=== PATIENT | female | born 1950 | race Caucasian/White ===

== ENCOUNTER 2019-04-11 20:22 | Inpatient (IN) | payer BC, OTHER ==
[2019-04-11 20:57] LABS: Absolute Lymphocytes (CBC) 0.6 K/uL (0.7-4.9); Basophils % 0.4 % (0-1.3); Hematocrit 46.2 % (36.0-45.0); Lymphocytes % 6.6 % (15.3-44.8); MPV 10.7 fL (7.6-11.3); RBC Red Blood Cell Count 5.28 M/uL (3.86-4.86)
[2019-04-11 20:59] LABS: Protime INR 0.95
[2019-04-11] MEDS ORDERED: INSULIN -REGULAR HUMAN 50 UNIT/0.5 ML ML ONE ×2 (21:06→22:31)
[2019-04-11 21:22] LABS: ALT/SGPT 234 U/L (12-78); AST/SGOT 105 U/L (15-37); Albumin 3.9 g/dL (3.4-5.0); Alkaline Phosphatase 883 U/L (45-117); BUN Blood Urea Nitrogen 57 mg/dL (7-18); Bicarbonate 15 mmol/L (21-32); Bilirubin Direct 1.8 mg/dL (0-0.2); Bilirubin Total 2.5 mg/dL (0.2-1.0); Magnesium 2.4 mg/dL (1.8-2.4); NT PRO-BNP 303 pg/mL (<125); Potassium 4.5 mmol/L (3.5-5.1); Sodium Level 130 mmol/L (136-145); Troponin (Emerg Dept Use Only) 0.26 ng/mL (0.0-0.045)
[2019-04-11 21:23] LABS: Glucose Level 688 mg/dL (74-106)
[2019-04-11 21:45] LABS: Blood Morphology Comment NOT SEEN (NOT SEEN); Platelet Estimate ADEQ; Urine White Blood Cell Casts OK
[2019-04-11] MEDS ORDERED: NA CHLORIDE 0.9% 1,000 ML ONE (22:26)
--- NOTE | 2019-04-11 23:26 | ER ---
Nurse's Notes [facility] Name: Pavithra Bowen Age: 68 yrs Sex: Female : 1950 Arrival Date: 04/11/2019 Time: 20:23 Bed 25 Private MD: Diagnosis: Chest pain, unspecified;Hyperglycemia, unspecified Presentation: 04/11 20:23 Presenting complaint: EMS states: patient had dull chest pain in the entire chest area mg2 today, high blood sugar and hypertension, BP- 172/112 and BGL-High. she is on treatment for shingles for 3 weeks now. Transition of care: patient was not received from another setting of care. Onset of symptoms was April 11, 2019. Risk Assessment: Do you want to hurt yourself or someone else? Patient reports no desire to harm self or others. Initial Sepsis Screen: Does the patient meet any 2 criteria? No. Patient's initial sepsis screen is negative. Does the patient have a suspected source of infection? No. Patient's initial sepsis screen is negative. Care prior to arrival: None. 20:23 Method Of Arrival: EMS: [facility] mg2 20:23 Acuity: MAURY 2 mg2 Historical: - Allergies: 20:26 Codeine; mg2 - Home Meds: 20:29 Plavix Oral [Active]; atorvastatin oral oral [Active]; valsartan oral oral [Active]; mg2 insulin [Active]; allopurinol Oral [Active]; - PMHx: 20:26 Diabetes - IDDM; Hypertension; shingles; Hyperlipidemia; mg2 - Immunization history:: Flu vaccine status is unknown. - Ebola Screening: : No symptoms or risks identified at this time. - Social history:: Smoking status: unknown. Screenin:55 Abuse screen: Denies threats or abuse. Denies injuries from another. Nutritional mg2 screening: No deficits noted. Tuberculosis screening: No symptoms or risk factors identified. Fall Risk IV access (20 points). Assessment: 20:54 General: Appears in no apparent distress. comfortable, Behavior is calm, cooperative. mg2 Pain: Complains of pain in chest Pain does not radiate. Pain currently is 2 out of 10 on a pain scale. Quality of pain is described as dull, Pain began gradually, Is intermittent. Neuro: Level of Consciousness is awake, alert, obeys commands, Oriented to person, place, time, situation. Cardiovascular: Reports chest pain, Capillary refill < 3 seconds Patient's skin is warm and dry. Respiratory: Airway is patent Respiratory effort is even, unlabored, Respiratory pattern is regular, symmetrical. GI: No signs and/or symptoms were reported involving the gastrointestinal system. : No signs and/or symptoms were reported regarding the genitourinary system. EENT: No signs and/or symptoms were reported regarding the EENT system. Derm: Skin is intact, is healthy with good turgor, Skin is pink, warm \T\ dry. normal. Musculoskeletal: Circulation, motion, and sensation intact. Capillary refill < 3 seconds. 23:33 Reassessment: patient denies chest pain now. informed about the need for mg2 hospitalization. 04/12 00:24 Reassessment: Patient appears in no apparent distress at this time. Patient and/or mg2 family updated on plan of care and expected duration. Pain level reassessed. Patient is alert, oriented x 3, equal unlabored respirations, skin warm/dry/pink. Vital Signs: 04/11 20:25 Temp 98.2; Weight 79.38 kg; Height 5 ft. 11 in. (180.34 cm); mg2 20:56 BP 154 / 87; Pulse 100; Resp 18; Pulse Ox 100% on R/A; mg2 21:31 BP 147 / 92; Pulse 95; Resp 18; Pulse Ox 99% on R/A; mg2 23:05 BP 164 / 85; Pulse 81; Resp 18; Temp 98; Pulse Ox 100% on R/A; Pain 0/10; mg2 04/12 00:23 BP 165 / 84; Pulse 68; Resp 18; Temp 98.5; Pulse Ox 100% on R/A; Pain 0/10; mg2 04/11 20:25 Body Mass Index 24.41 (79.38 kg, 180.34 cm) mg2 ED Course: 04/11 20:23 Patient arrived in ED. ds1 20:23 Aly Aguila, RN is Primary Nurse. mg2 20:25 Triage completed. mg2 20:26 Arm band placed on. mg2 20:30 Lalo Guido MD is Attending Physician. tw4 20:40 EKG done, by ED staff, reviewed by Lalo Guido MD. jp3 20:45 Placed in gown. Bed in low position. Call light in reach. Side rails up X 1. Warm jp3 blanket given. Verbal reassurance given. 20:45 surveillance system monitor on. Pulse ox on. NIBP on. jp3 20:54 Patient maintains SpO2 saturation greater than 95% on room air. jp3 20:56 No provider procedures requiring assistance completed. Maintain EMS IV. Dressing mg2 intact. Good blood return noted. Site clean \T\ dry. Gauge \T\ site: 20 at . 20:59 XRAY Chest (1 view) In Process Unspecified. EDMS 22:00 Repeat lab(s) drawn. by me, sent to lab. jp3 22:02 Glucose Sent. jp3 23:25 Hector Grajeda MD is Hospitalizing Provider. tw4 23:30 Repeat lab(s) drawn. by me, sent to lab. jp3 23:35 Glucose Sent. jp3 23:35 Glucose, Ancillary Testing Sent. jp3 04/12 01:14 Patient admitted, IV remains in place. mg2 Administered Medications: 04/11 20:45 Drug: Insulin Regular Human 10 units {Co-Signature: ophelia (Agustina Araiza RN).} Route: mg2 IVP; Site: right hand; 21:47 Follow up: Response: No adverse reaction mg2 22:14 Drug: Insulin Regular Human 10 units {Co-Signature: delano (Davi Vazquez RN).} Route: IVP; mg2 Site: right hand; 04/12 00:22 Follow up: Response: No adverse reaction; Blood sugar is lowered mg2 04/11 22:15 Drug: Insulin Regular Human 5 units {Co-Signature: delano (Davi Vazquez RN).} Route: Sub-Q; mg2 Site: right upper arm; 04/12 00:22 Follow up: Response: No adverse reaction; Blood sugar is lowered mg2 04/11 22:15 Drug: NS 0.9% 1000 ml Route: IV; Rate: 1 bolus; Site: right hand; mg2 04/12 00:22 Follow up: Response: No adverse reaction; IV Status: Completed infusion; IV Intake: mg2 1000ml Point of Care Testing: Blood Glucose: 04/11 23:15 Blood Glucose: 471 mg/dL; mg2 Ranges: Intake: 04/12 00:22 IV: 1000ml; Total: 1000ml. mg2 Outcome: 04/11 23:25 Decision to Hospitalize by Provider. tw4 04/12 01:26 Admitted to Med/surg accompanied by nurse, via wheelchair, room 208, Report called to leigh garcia RN Condition: good Instructed on the need for admit, Demonstrated understanding of instructions. 01:27 Patient left the ED. [facility] Signatures: Dispatcher [employer] EDCA Cricket [place] ds1 Lalo Guido MD MD tw4 Aly Aguila RN RN [facility] Herberth Mae 3 Agustina Araiza RN Davi Vazquez RN la1 Corrections: (The following items were deleted from the chart) 04/11 21:01 20:56 BP 154 / 87; Pulse 100bpm; Resp 18bpm; mg2 mg2
--- NOTE | 2019-04-11 23:27 | EDPHYS ---
Physician Documentation [facility] Name: Pavithra Bowen Age: 68 yrs Sex: Female : 1950 Arrival Date: 04/11/2019 Time: 20:23 Bed 25 Private MD: ED Physician Lalo Guido HPI: 04/12 05:44 This 68 yrs old Female presents to ER via EMS with complaints of Chest Pain. tw4 05:44 The patient or guardian reports chest pain that is located primarily in the anterior tw4 chest wall. Onset: today. The pain does not radiate. Associated signs and symptoms: The patient has no apparent associated signs or symptoms. The chest pain is described as dull. Duration: The patient or guardian reports a single episode. Modifying factors: The symptoms are alleviated by nothing. the symptoms are aggravated by nothing. Severity of pain: At its worst the pain was moderate in the emergency department the pain is unchanged. The patient has not experienced similar symptoms in the past. Historical: - Allergies: 04/11 20:26 Codeine; mg2 - Home Meds: 20:29 Plavix Oral [Active]; atorvastatin oral oral [Active]; valsartan oral oral [Active]; mg2 insulin [Active]; allopurinol Oral [Active]; - PMHx: 20:26 Diabetes - IDDM; Hypertension; shingles; Hyperlipidemia; mg2 - Immunization history:: Flu vaccine status is unknown. - Ebola Screening: : No symptoms or risks identified at this time. - Social history:: Smoking status: unknown. ROS: 04/12 05:44 Constitutional: Negative for fever, chills, and weight loss, Eyes: Negative for injury, tw4 pain, redness, and discharge, Respiratory: Negative for shortness of breath, cough, wheezing, and pleuritic chest pain, Abdomen/GI: Negative for abdominal pain, nausea, vomiting, diarrhea, and constipation, Back: Negative for injury and pain, MS/Extremity: Negative for injury and deformity, Skin: Negative for injury, rash, and discoloration, Neuro: Negative for headache, weakness, numbness, tingling, and seizure. Cardiovascular: Positive for chest pain, Negative for edema, orthopnea, palpitations. Exam: 05:44 Constitutional: This is a well developed, well nourished patient who is awake, alert, tw4 and in no acute distress. Head/Face: Normocephalic, atraumatic. Chest/axilla: Normal chest wall appearance and motion. Nontender with no deformity. No lesions are appreciated. Cardiovascular: Regular rate and rhythm with a normal S1 and S2. No gallops, murmurs, or rubs. Normal PMI, no JVD. No pulse deficits. Respiratory: Lungs have equal breath sounds bilaterally, clear to auscultation and percussion. No rales, rhonchi or wheezes noted. No increased work of breathing, no retractions or nasal flaring. Abdomen/GI: Soft, non-tender, with normal bowel sounds. No distension or tympany. No guarding or rebound. No evidence of tenderness throughout. Back: No spinal tenderness. No costovertebral tenderness. Full range of motion. MS/ Extremity: Pulses equal, no cyanosis. Neurovascular intact. Full, normal range of motion. Neuro: Awake and alert, GCS 15, oriented to person, place, time, and situation. Cranial nerves II-XII grossly intact. Motor strength 5/5 in all extremities. Sensory grossly intact. Cerebellar exam normal. Normal gait. Vital Signs: 04/11 20:25 Temp 98.2; Weight 79.38 kg; Height 5 ft. 11 in. (180.34 cm); mg2 20:56 BP 154 / 87; Pulse 100; Resp 18; Pulse Ox 100% on R/A; mg2 21:31 BP 147 / 92; Pulse 95; Resp 18; Pulse Ox 99% on R/A; mg2 23:05 BP 164 / 85; Pulse 81; Resp 18; Temp 98; Pulse Ox 100% on R/A; Pain 0/10; mg2 04/12 00:23 BP 165 / 84; Pulse 68; Resp 18; Temp 98.5; Pulse Ox 100% on R/A; Pain 0/10; mg2 04/11 20:25 Body Mass Index 24.41 (79.38 kg, 180.34 cm) mg2 MDM: 04/11 20:30 Patient medically screened. tw4 04/12 05:44 Differential diagnosis: abnormal EKG, acute myocardial infarction. HEART Score: tw4 History: Moderately Suspicious (1), ECG: Non specific repolarization disturbance / LBTB / PM (1), Age: > or = 65 years (2), Risk Factors: 1 or 2 risk factors (1), Troponin: > 1 and < 3 x normal limit (1), Total Score = 3. Data reviewed: vital signs, nurses notes. Data interpreted: Pulse oximetry: Interpretation:. Test interpretation: by ED physician or midlevel provider: ECG, plain radiologic studies. Counseling: I had a detailed discussion with the patient and/or guardian regarding: the historical points, exam findings, and any diagnostic results supporting the discharge/admit diagnosis, lab results, radiology results. Physician consultation: Hector Grajeda MD and will see patient in inpatient room. 04/11 20:41 Order name: Basic Metabolic Panel; Complete Time: 23:15 tw 04/11 23:20 Interpretation: Normal except: GFR 24; CRE 2.08; BUN 57; GLUC 688; CO2 15; NA 130. tw04/11 20:41 Order name: CBC with Diff; Complete Time: 23:15 [facility] 04/11 20:41 Order name: LFT's; Complete Time: 23:15 [facility] 04/11 20:41 Order name: Magnesium; Complete Time: 23:15 tw4 04/11 23:17 Interpretation: Within normal limits: MG 2.4. tw04/11 20:41 Order name: NT PRO-BNP; Complete Time: 23:15 [facility] 04/11 20:41 Order name: PT-INR; Complete Time: 23:15 tw4 04/11 23:17 Interpretation: Within normal limits: PT 11.2. 04/11 20:41 Order name: Troponin (emerg Dept Use Only); Complete Time: 23:15 [facility] 04/11 23:16 Interpretation: Abnormal: TROPED 0.26. tw04/11 20:41 Order name: Ketone, Serum; Complete Time: 22:03 [facility] 04/11 23:17 Interpretation: Within normal limits: ACET NEG. 04/11 20:42 Order name: Glucose, Ancillary Testing; Complete Time: 23:15 EDMS 04/11 23:16 Interpretation: Abnormal: GLUC,ANCIL > 450. 04/11 20:49 Order name: Urine Dipstick--Ancillary (enter results) [facility] 04/11 21:00 Order name: CBC Smear Scan; Complete Time: 23:15 EDMS 04/11 21:46 Order name: Glucose; Complete Time: 23:15 mg2 04/11 23:17 Interpretation: Abnormal: GLUC 642. tw4 04/11 22:06 Order name: Glucose, Ancillary Testing; Complete Time: 23:15 EDMS 04/11 22:08 Order name: Glucose, Ancillary Testing EDMS 04/11 20:41 Order name: XRAY Chest (1 view) tw4 04/11 20:41 Order name: EKG; Complete Time: 20:44 tw4 04/11 20:41 Order name: Cardiac monitoring; Complete Time: 20:57 tw4 04/11 20:41 Order name: EKG - Nurse/Tech; Complete Time: 20:53 tw4 04/11 20:41 Order name: IV Saline Lock; Complete Time: 20:53 tw4 04/11 20:41 Order name: Labs collected and sent; Complete Time: 20:54 tw4 04/11 20:41 Order name: O2 Per Protocol; Complete Time: 20:54 tw4 04/11 20:41 Order name: O2 Sat Monitoring; Complete Time: 20:54 tw4 04/11 23:17 Order name: Glucose tw4 EC:53 Rate is 100 beats/min. Rhythm is regular. QRS [place] is Normal. NC interval is normal. tw4 QRS interval is normal. QT interval is normal. No Q waves. T waves are Normal. No ST changes noted. Clinical impression: NSR w/ Non-specific ST/T Changes and Abnormal EKG without significant change. Interpreted by me. Reviewed by me. Administered Medications: 04/11 20:45 Drug: Insulin Regular Human 10 units {Co-Signature: (Agustina Araiza RN).} Route: mg2 IVP; Site: right hand; 21:47 Follow up: Response: No adverse reaction mg2 22:14 Drug: Insulin Regular Human 10 units {Co-Signature: delano (Davi Vazquez RN).} Route: IVP; mg2 Site: right hand; 04/12 00:22 Follow up: Response: No adverse reaction; Blood sugar is lowered mg2 04/11 22:15 Drug: Insulin Regular Human 5 units {Co-Signature: delano (Davi Vazquez RN).} Route: Sub-Q; mg2 Site: right upper arm; 04/12 00:22 Follow up: Response: No adverse reaction; Blood sugar is lowered mg2 04/11 22:15 Drug: NS 0.9% 1000 ml Route: IV; Rate: 1 bolus; Site: right hand; mg2 04/12 00:22 Follow up: Response: No adverse reaction; IV Status: Completed infusion; IV Intake: mg2 1000ml Point of Care Testing: Blood Glucose: 04/11 23:15 Blood Glucose: 471 mg/dL; mg2 Ranges: Critical Glucose Levels:Adult <50 mg/dl or >400 mg/dl <40 mg/dl or >180 mg/dl Disposition: 04/11/19 23:25 Hospitalization ordered by Hector Grajeda for Inpatient Admission. Preliminary diagnosis are Chest pain, unspecified, Hyperglycemia, unspecified. - Bed requested for Telemetry/MedSurg (Inpatient). - Status is Inpatient Admission. mg2 - Condition is Stable. - Problem is new. - Symptoms have improved. UTI on Admission? No Signatures: Dispatcher [employer] EDMS Davi Vazquez RN RN la1 Lalo Guido MD MD tw4 Aly Aguila RN RN [facility] Agustina Araiza RN Davi Vazquez RN la1 Corrections: (The following items were deleted from the chart) 04/12 00:49 04/11 23:25 Hospitalization Ordered by Hector Grajeda MD for Inpatient Admission. la1 Preliminary diagnosis is Chest pain, unspecified; Hyperglycemia, unspecified. Bed requested for Telemetry/MedSurg (Inpatient). Status is Inpatient Admission. Condition is Stable. Problem is new. Symptoms have improved. UTI on Admission? No. tw4 04/12 01:27 00:49 04/11/2019 23:25 Hospitalization Ordered by Hector Grajeda MD for Inpatient mg2 Admission. Preliminary diagnosis is Chest pain, unspecified; Hyperglycemia, unspecified. Bed requested for Telemetry/MedSurg (Inpatient). Status is Inpatient Admission. Condition is Stable. Problem is new. Symptoms have improved. UTI on Admission? No. la1
[2019-04-11 23:49] LABS: Urine Blood TRACE (NEG); Urine Glucose 2+ (NEG); Urine Protein 2+ (NEG)
[2019-04-12] MEDS ORDERED: ALPRAZOLAM 0.25 MG TABLET PO PRN (00:33)
[2019-04-12] MEDS ORDERED: MORPHINE 4 MG/ML SYR IV PRN (00:33)
[2019-04-12] MEDS ORDERED: ACETAMINOPHEN 500 MG TAB PO PRN (00:33)
[2019-04-12 02:15] VITALS: BMI 32.9
[2019-04-12 06:06] LABS: Troponin I 8.03 ng/mL (0.0-0.045)
[2019-04-12] MEDS ORDERED: ENOXAPARIN 80 MG/0.8 ML SQ SCH (07:00)
--- NOTE | 2019-04-12 07:41 | P.HP ---
Certification for Inpatient Patient admitted to: Inpatient With expected LOS: >2 Midnights Patient will require the following post-hospital care: None Practitioner: I am a practitioner with admitting privileges, knowledge of patient current condition, hospital course, and medical plan of care. Services: Services provided to patient in accordance with Admission requirements found in Title 42 Section 412.3 of the Code of Federal Regulations Patient History Date of Service: 04/12/19 Reason for admission: Chest pain rule out acute coronary syndrome History of Present Illness: Patient is a 68-year-old female came to the hospital with chest discomfort. Pain was mainly in the sternal region. She has been treated for shingles over the last week by her primary care provider Dr. Purdy. She states her blood sugars have been elevated since starting her treatment. Today they were in the 600s. She came to the ER because she was not feeling well. She has some chest discomfort as described above. The was no radiation of her chest pain along with no shortness of breath or nausea. In the emergency room she was found to have an elevated blood sugar. She was admitted to the hospital for further evaluation. Patient has a history of coronary artery disease in the been stented x4. She does not really remember where the stents were. 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 She is on allopurinol. Otherwise, she has no new complaints. She was treated for shingles and is still on antivirals at this time. Allergies codeine Allergy (Verified 04/12/19 00:56) Hives/Rash Home Medications: Allopurinol 100 mg PO DAILY 04/12/19 Clopidogrel Bisulfate [Plavix*] 75 mg PO DAILY 04/12/19 Colchicine [Colcrys *] 0.6 mg PO PRN PRN 04/12/19 Empagliflozin/Linagliptin [Glyxambi 10 mg-5 mg Tablet] 10 mg PO DAILY 04/12/19 Famciclovir [Famvir] 500 mg PO BID 04/12/19 Insulin Glargine,Hum.rec.anlog [Basaglar Kwikpen U-100] 28 units SQ DAILY Olmesartan Medoxomil [Benicar] 20 mg PO DAILY 04/12/19 - Past Medical/Surgical History Has patient received pneumonia vaccine in the past: Yes Diabetic: Yes -: IDDM -: HTN -: HLD -: Gout -: Shingles -: 4 cardiac stents (2001) -: tubal pregnacy -: cataract surgery - Family History Mother Medical History: Diabetes, Cancer Father Medical History: Cancer - Social History Smoking Status: Never smoker Alcohol use: No CD- Drugs: No Caffeine use: Yes Place of Residence: Home Review of Systems 10-point ROS is otherwise unremarkable Physical Examination - Vital Signs Temperature: 97.3 F Blood Pressure: 142/66 Pulse: 65 Respirations: 16 Pulse Ox (%): 99 - Physical Exam General: Alert, In no apparent distress, Oriented x3 HEENT: Atraumatic, PERRLA, Mucous membr. moist/pink, Other (Shingles rash on the right side of her face above the eyebrows), EOMI, Sclerae nonicteric Neck: Supple, 2+ carotid pulse no bruit, No LAD, Without JVD or thyroid abnormality Respiratory: Clear to auscultation bilaterally, Normal air movement Cardiovascular: Regular rate/rhythm, Normal S1 S2, No murmurs Gastrointestinal: Normal bowel sounds, Soft and benign, Non-distended, No tenderness Musculoskeletal: No clubbing, No swelling, No tenderness Integumentary: No rashes Neurological: Normal gait, Normal speech, Normal strength at 5/5 x4 extr, Normal tone, Sensation intact, Cranial nerves 3-12 intact, Normal affect Lymphatics: No axilla or inguinal lymphadenopathy - Studies Laboratory Data (last 24 hrs) 04/11/19 23:30: Glucose 494 H* 04/11/19 22:00: Glucose 642 H* 04/11/19 20:45: PT 11.2, INR 0.95 04/11/19 20:45: WBC 9.7, Hgb 14.6, Hct 46.2 H, Plt Count 319 04/11/19 20:45: Sodium 130 L, Potassium 4.5, BUN 57 H, Creatinine 2.08 H, Glucose 688 H*, Magnesium 2.4, Total Bilirubin 2.5 H, AST 105 H, ALT 234 H, Alkaline Phosphatase 883 H Assessment & Plan - Problems (Diagnosis) (1) Acute coronary syndrome Current Visit: Yes Status: Acute (2) History of coronary artery disease Current Visit: Yes Status: Acute (3) History of heart artery stent Current Visit: Yes Status: Acute (4) Gouty arthropathy Current Visit: Yes Status: Acute (5) Hyperglycemic hyperosmolar nonketotic coma Current Visit: Yes Status: Acute (6) Chronic kidney disease Current Visit: Yes Status: Acute - Plan 1. Serial troponins and EKG 2. Cardiology consultation 3. Echocardiogram and scheduled for Coronary intervention in the morning 4. Anti-platelet therapy, anti coagulation, beta-livia, statin, and O2 as needed 5. IV morphine for pain 6. Nitro p.r.n. 7. IV fluids and strict blood sugar control 8. Antivirals for shingles 9. NPO after midnight 10. GI and DVT prophylaxis Discharge Plan: Home Plan to discharge in: Greater than 2 days - Advance Directives Does patient have a Living Will: No Does patient have a Durable POA for Healthcare: No - Code Status/Comfort Care Code Status Assessed: Yes Code Status: Full Code Critical Care: Yes Time Spent Managing PTS Care (In Minutes): 50
[2019-04-12] MEDS ORDERED: D50W 25 GM/50 ML SYRINGE IV PRN (08:12)
[2019-04-12] MEDS ORDERED: GLUCAGON 1 MG/VIAL IM PRN (08:12)
[2019-04-12] MEDS: FAMCICLOVIR 500 MG PO SCH ×2 (09:00→21:00)
[2019-04-12] MEDS ORDERED: METOPROLOL TAR 50 MG TAB PO SCH (09:00)
[2019-04-12] MEDS ORDERED: HEPARIN 5000 UNIT/ML 1 ML VIAL SQ SCH (09:00)
[2019-04-12] MEDS: VALSARTAN 80 MG TAB PO SCH (09:05)
[2019-04-12] MEDS: ATORVASTATIN 40 MG TAB PO SCH (09:05)
[2019-04-12] MEDS: ASPIRIN EC 81 MG TAB PO SCH (09:06)
[2019-04-12] MEDS: ALLOPURINOL 100 MG TAB PO SCH (09:06)
[2019-04-12] MEDS: CLOPIDOGREL 75 MG TABLET PO SCH (09:06)
[2019-04-12] MEDS: METOPROLOL TAR 50 MG TAB PO SCH ×2 (09:06→21:00)
[2019-04-12] MEDS: INSULIN GLARGINE 100 UNITS/ML SQ SCH (09:07)
--- NOTE | 2019-04-12 09:11 | EKG ---
Test Date: 2019-04-12 Test Time: 07:21:51 Salvationist: Parul MEASUREMENT RESULTS: Intervals: Rate: 59 CO: 196 QRSD: 82 QT: 490 QTc: 485 [place]: P: 42 CO: 196 QRS: 3 T: 126 INTERPRETIVE STATEMENTS: Sinus bradycardia T wave abnormality, consider lateral ischemia Prolonged QT Abnormal ECG Compared to ECG 04/11/2019 20:39:58 T-wave abnormality now present Possible ischemia now present Prolonged QT interval now present Sinus rhythm no longer present First degree AV block no longer present Myocardial infarct finding no longer present Electronically Signed On 04-12-19 09:10:31 CDT by Abhay Long
--- NOTE | 2019-04-12 09:12 | EKG ---
Test Date: 2019-04-11 Test Time: 20:39:58 Educational Consultant: CYNDI MEASUREMENT RESULTS: Intervals: Rate: 100 MO: 210 QRSD: 76 QT: 364 QTc: 469 Craig: P: 83 MO: 210 QRS: -13 T: 67 INTERPRETIVE STATEMENTS: Sinus rhythm with 1st degree AV block Septal infarct, age undetermined Abnormal ECG No previous ECG available for comparison Electronically Signed On 04-12-19 09:10:41 CDT by Abhay Long
--- NOTE | 2019-04-12 09:58 | CON ---
Date of Consultation: 04/12/[address] Grajeda's service on 04/12/2019. I saw the patient on 04/12/2019. Reason For Consultation: Non-ST elevation myocardial infarction. History Of Present Illness: Ms. Bowen is a 68-year-old woman. She has a history of history of hyp ertension, diabetes, coronary artery disease status post stents in 2001. She has history of recent o nset gout and recent onset shingles. She came in with substernal chest pressure throughout her whole and anterior chest with some radiation to the neck with nausea, diaphoresis, shortness of breath. N o vomiting. Denied PND, orthopnea, pedal edema, palpitations, or syncope. This happened while she w as exerting herself after a meal in [place]. She normally lives in [place] and sees Dr. Indra barnard. Has not had any cardiac issues since 2001 with her stents. She is a diabetic and her sugar was more than 450 when she came in. Allergies: SHE IS ALLERGIC TO CODEINE. Review of Systems: Negative. Family History: Positive for diabetes. Social History: Negative for tobacco. Medications: At home include; colchicine, Benicar, Glyxambi, insulin, allopurinol, Lipitor, Plavix, and Famvir. Physical Examination: General: She is a very pleasant lady, in no acute distress. Vital Signs: Stable. Afebrile. HEENT: Negative. Neck: Supple without bruit, lymphadenopathy, JVD, or thyromegaly. Chest: Clear to auscultation and percussion. Cardiac: Revealed a regular rhythm and rate. No murmurs, gallops, or rubs. Abdomen: Benign. Extremities: Revealed no clubbing, cyanosis, or edema. Pulses were present bilaterally distally. Skin: Dry and intact with some evidence of shingles. Neurological: She was nonfocal. Diagnostic Data: Her creatinine was 1.59 with a GFR of 32. Her blood glucose was more than 450. He r AST is 105, ALT is 234, alkaline phosphatase is 883. Her troponin was 8.03. Cholesterol is 240 wi th an HDL of 92. EKG showed possible lateral ischemia. Chest x-ray is negative. Impression And Plan: 1.Non-ST elevation myocardial infarction. 2.Renal insufficiency stage IV. 3.Elevated liver function enzymes, unknown etiology. I think an abdominal ultrasound would be reaso nable, especially a liver ultrasound and gallbladder ultrasound. 4.Diabetes poorly controlled. 5.Dyslipidemia. 6.Shingles. 7.Gout. 8.Hypertension, well controlled. 9.History of coronary artery disease, status post multiple stents in 2001. I think the plan on Ms. Bowen is to do a heart catheterization in the morning. She does understand the risk and the benefits of the procedure and agrees to proceed. She does understand that the kidn eys are at risk from the contrast. We will give her Mucomyst before and after the procedure. An ech ocardiogram is pending. I think we need to continue her present regimen, control her sugar better, a nd I think we need to do a liver and gallbladder ultrasound as well. We will continue to follow her. We will see what her catheterization shows prior to making final decisions. ADALBERTO Voice ID: [id number] Report ID: [id number]
[2019-04-12] MEDS ORDERED: INSULIN -REGULAR HUMAN 50 UNIT/0.5 ML ML SQ SCH (11:30)
[2019-04-12] MEDS: INSULIN -REGULAR HUMAN 50 UNIT/0.5 ML ML SQ SCH ×3 (11:58→21:19)
--- NOTE | 2019-04-12 12:41 | RAD REPORT ---
EXAM DESCRIPTION: RAD - Chest Single View - 04/11/2019 9:00 pm CLINICAL HISTORY: CHEST PAIN Chest pain. COMPARISON: No comparisons FINDINGS: Portable technique limits examination quality. The lungs are grossly clear. The heart is normal in size. No displaced fractures. IMPRESSION: No acute intrathoracic process suspected.
[2019-04-12] MEDS ORDERED: METOPROLOL TAR 25 MG TAB PO ONE (21:42)
[2019-04-13] MEDS ORDERED: METOPROLOL TAR 25 MG TAB PO ONE (06:00)
[2019-04-13] MEDS ORDERED: ACETYLCYST 20% 800 MG/4 ML VIAL PO SCH (06:00)
[2019-04-13] MEDS ORDERED: ENOXAPARIN 80 MG/0.8 ML SQ SCH (06:00)
[2019-04-13] MEDS: FAMCICLOVIR 500 MG PO SCH ×2 (07:58→21:00)
[2019-04-13] MEDS: CLOPIDOGREL 75 MG TABLET PO SCH (07:59)
[2019-04-13] MEDS: ASPIRIN EC 81 MG TAB PO SCH (07:59)
[2019-04-13] MEDS: VALSARTAN 80 MG TAB PO SCH (08:00)
[2019-04-13] MEDS ORDERED: GLUCAGON 1 MG/VIAL IM PRN (08:02)
[2019-04-13] MEDS ORDERED: D50W 25 GM/50 ML SYRINGE IV PRN (08:02)
[2019-04-13] MEDS ORDERED: INSULIN -REGULAR HUMAN 50 UNIT/0.5 ML ML SQ ONE (08:03)
[2019-04-13] MEDS ORDERED: LIDOCAINE 1% 20 ML MDV ONE (08:08)
[2019-04-13] MEDS ORDERED: HEPA 1000U/500MLS 2,000 UNIT/1,000 ML BAG IV ONE (08:09)
[2019-04-13] MEDS: INSULIN GLARGINE 100 UNITS/ML SQ SCH (08:09)
[2019-04-13] MEDS: METOPROLOL TAR 50 MG TAB PO SCH (08:09)
[2019-04-13] MEDS: INSULIN -REGULAR HUMAN 50 UNIT/0.5 ML ML SQ SCH ×4 (08:11→22:00)
[2019-04-13] MEDS: ALLOPURINOL 100 MG TAB PO SCH (08:16)
[2019-04-13] MEDS: ATORVASTATIN 40 MG TAB PO SCH (08:16)
[2019-04-13] MEDS ORDERED: MIDAZOLAM HCL 2 MG/2 ML INJ ONE (08:50)
[2019-04-13] MEDS ORDERED: FENTANYL CITR 100 MCG/2 ML ONE (08:50)
[2019-04-13] MEDS ORDERED: NA CHLORIDE 0.9% 500 ML ONE (08:50)
--- NOTE | 2019-04-13 08:58 | RAD REPORT ---
EXAM DESCRIPTION: US - Abdomen Exam Complete - 04/13/2019 7:29 am CLINICAL HISTORY: Abdominal pain/abnormal liver function test enzymes COMPARISON: none FINDINGS: The liver has a normal echotexture A gallstone is not seen. Gallbladder wall is upper limits normal thickness. Biliary tree normal calib er The gallbladder wall is not thickened. The biliary tree is normal caliber. The pancreas pancreatic head and body normal in size and echotexture. Pancreatic tail not well seen s econdary to overlying bowel gas The right kidney measures 11 centimeters with a normal echotexture. The left kidney measures 11 centimeters with a normal echotexture. 1 centimeter left renal cyst The spleen measures 10 centimeters. The abdominal aorta and inferior vena cava appear unremarkable IMPRESSION: No significant abnormalities displayed
[2019-04-13] MEDS ORDERED: NA CHLORIDE 0.9% 0 ML ONE (09:21)
[2019-04-13] MEDS ORDERED: ATROPINE SULF 1 MG/10 ML SYR IV ONE (09:21)
--- NOTE | 2019-04-13 15:38 | ECHO ---
HEIGHT: 5 ft 1 in WEIGHT: 174 lb 8 oz DATE OF STUDY: 04/13/[address]: Hector Grajeda MD 2-DIMENSIONAL: YES M.MODE: YES DOPPLER: YES COLOR FLOW: YES TDS: NO PORTABLE: NO DEFINITY: NO BUBBLE STUDY: NO DIAGNOSIS: CHEST PAIN RULE OUT ACUTE CORONARY SYNDROME CARDIAC HISTORY: CATHERIZATION: YES SURGERY: NO PROSTHETIC VALVE: NO PACEMAKER: NO MEASUREMENTS (cm) DIASTOLIC (NORMALS) SYSTOLIC (NORMALS) IVSd 1.1 (0.6-1.2) LA Diam 3.5 (1.9-4.0) LVEF 64% LVIDd 4.0 (3.5-5.7) LVIDs 2.6 (2.0-3.5) %FS 34% LVPWd 1.1 (0.6-1.2) Ao Diam 2.7 (2.0-3.7) 2 DIMENSIONAL ASSESSMENT: RIGHT ATRIUM: NORMAL LEFT ATRIUM: NORMAL RIGHT VENTRICLE: NORMAL LEFT VENTRICLE: NORMAL TRICUSPID VALVE: NORMAL MITRAL VALVE: NORMAL PULMONIC VALVE: NORMAL AORTIC VALVE: NORMAL PERICARDIAL EFFUSION: NONE AORTIC ROOT: NORMAL LEFT VENTRICULAR WALL MOTION: NORMAL. DOPPLER/COLOR FLOW: MILD AORTIC REGURGITATION, MITRAL REGURGITATION, AND TRICUSPID REGURGITATION. NORMAL RIGHT VENTRICULAR SYSTOLIC PRESSURE. COMMENTS: NORMAL 2D ECHOCARDIOGRAM WITH DOPPLER. MILD AORTIC REGURGITATION, MITRAL REGURGITATION, AND TRICUSPID REGURGITATION. TECHNOLOGIST: IRENE HOOVER RDCS
--- NOTE | 2019-04-13 18:16 | P.DS ---
Admission Date: 04/12/19 Discharge Date: 04/13/19 Disposition: TRANSFER TO [facility] Discharge Condition: FAIR Reason for Admission: Chest pain rule out acute coronary syndrome Consultations: Cardiology Procedures: Heart catheterization - Problems (1) Acute coronary syndrome Current Visit: Yes Status: Acute (2) Chronic kidney disease Current Visit: Yes Status: Chronic Qualifiers: Chronic kidney disease stage: stage 2 (mild) Qualified Code(s): N18.2 - Chronic kidney disease, stage 2 (mild) (3) History of coronary artery disease Current Visit: Yes Status: Chronic (4) History of heart artery stent Current Visit: Yes Status: Chronic Brief History of Present Illness: Patient is a 68-year-old female came to the hospital with chest discomfort. Pain was mainly in the sternal region. She has been treated for shingles over the last week by her primary care provider Dr. Purdy. She states her blood sugars have been elevated since starting her treatment. Today they were in the 600s. She came to the ER because she was not feeling well. She has some chest discomfort as described above. The was no radiation of her chest pain along with no shortness of breath or nausea. In the emergency room she was found to have an elevated blood sugar. She was admitted to the hospital for further evaluation. Patient has a history of coronary artery disease in the been stented x4. She does not really remember where the stents were. 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 She is on allopurinol. Otherwise, she has no new complaints. She was treated for shingles and is still on antivirals at this time. Hospital Course: Overall during the hospital stay patient remained stable Patient was initially admitted to the hospital for non ST elevated [place]. Cardiology was consulted. Recommended heart catheterization. Patient was started on ACS medication here in the hospital. Patient had cardiac catheterization done here in the hospital was consistent with more than 3 vessel disease and thus patient was referred over to transfer to the medical center for CABG. Patient was accepted by the cardiothoracic surgeon there and thus was transferred there for further care Vital Signs/Physical Exam: Temp Pulse Resp BP Pulse Ox 97.5 F 47 L 18 167/80 H 99 04/13/19 12:00 04/13/19 12:00 04/13/19 12:00 04/13/19 12:00 04/13/19 12:00 General: Alert, In no apparent distress HEENT: Atraumatic, PERRLA, EOMI Neck: Supple, JVD not distended Respiratory: Clear to auscultation bilaterally, Normal air movement Cardiovascular: Regular rate/rhythm, Normal S1 S2 Gastrointestinal: Normal bowel sounds, No tenderness Musculoskeletal: No tenderness Integumentary: No rashes Neurological: Normal speech, Normal tone, Normal affect Lymphatics: No axilla or inguinal lymphadenopathy Laboratory Data at Discharge: WBC 9.7 K/uL (4.3-10.9) 04/11/19 20:45 Hgb 14.6 g/dL (12.0-15.0) 04/11/19 20:45 Hct 46.2 % (36.0-45.0) H 04/11/19 20:45 Plt Count 319 K/uL (152-406) 04/11/19 20:45 PT 11.2 SECONDS (9.5-12.5) 04/11/19 20:45 INR 0.95 04/11/19 20:45 Sodium 135 mmol/L (136-145) L 04/12/19 05:20 Potassium 4.0 mmol/L (3.5-5.1) 04/12/19 05:20 BUN 55 mg/dL (7-18) H 04/12/19 05:20 Creatinine 1.59 mg/dL (0.55-1.3) H 04/12/19 05:20 Glucose 351 mg/dL (74-106) H 04/12/19 05:20 Magnesium 2.4 mg/dL (1.8-2.4) 04/11/19 20:45 Total Bilirubin 2.5 mg/dL (0.2-1.0) H 04/11/19 20:45 AST 105 U/L (15-37) H 04/11/19 20:45 ALT 234 U/L (12-78) H 04/11/19 20:45 Alkaline Phosphatase 883 U/L (45-117) H 04/11/19 20:45 Troponin I 7.17 ng/mL (0.0-0.045) H* 04/12/19 12:52 Triglycerides 81 mg/dL (<150) 04/12/19 05:22 Cholesterol 240 mg/dL (<200) H 04/12/19 05:22 HDL Cholesterol 92 mg/dL (40-60) H 04/12/19 05:22 Cholesterol/HDL Ratio 2.61 04/12/19 05:22 Home Medications: Allopurinol 100 mg PO DAILY 04/12/19 Clopidogrel Bisulfate [Plavix*] 75 mg PO DAILY 04/12/19 Colchicine [Colcrys *] 0.6 mg PO PRN PRN 04/12/19 Empagliflozin/Linagliptin [Glyxambi 10 mg-5 mg Tablet] 10 mg PO DAILY 04/12/19 Famciclovir [Famvir] 500 mg PO BID 04/12/19 Insulin Glargine,Hum.rec.anlog [Basaglar Kwikpen U-100] 28 units SQ DAILY Olmesartan Medoxomil [Benicar] 20 mg PO DAILY 04/12/19
--- NOTE | 2019-04-13 19:51 | OP ---
Surgeon: Darrel Hale MD Identificaion: Ms. Bowen is 68. Procedure: Left heart catheterization with coronary and left ventricular angiography. Procedure Findings: The patient has a left dominant system. She has severe diffuse coronary heart d isease including an ostial LAD lesion and multiple lesions throughout the circumflex, posterolateral branches, and obtuse marginal branches of the circumflex. Her left ventricular ejection fraction is normal. The left ventricular end-diastolic pressure was 10, and the recommendation is for coronary b ypass surgery. Procedure In Detail: The patient had evidence of a non-ST elevation [place]. She was brought to the [facility] cath lab tech in a fasting state and sedated with Versed and fentanyl. Prepared and draped in usual s terile fashion. Right femoral artery was used. Tissues around the artery were anesthetized with 1% lidocaine. An 18-gauge needle was used to enter the artery. We were able to thread a short J-wire i nto the femoral artery. We used that to place a 4-Khmer sheath. The introducer and wire were remov ed. The sheath was flushed and this was used for the remainder of the procedure. At the end of the procedure, an angiogram was done through the sheath. Adequate anatomy was seen and the arteriotomy w as closed with an Angio-Seal device. We used a JL4 to angiogram the left coronary. A 3DRC to angiog lor the right coronary and a 4-Khmer angled pigtail to angiogram the left ventricle and measure pres sures. When all the catheters were removed we removed the sheath and closed the arteriotomy with an Angio-Seal device. Complications From The Procedure: None. Estimated Blood Loss: 10 cc. Bush Hog Operator: Yany Cunningham. NEELA/TALIA Voice ID: [id number] Report ID: [id number]
[2019-04-13] MEDS ORDERED: METOPROLOL TAR 25 MG TAB PO SCH (21:00)
[2019-04-13] MEDS ORDERED: LOSARTAN POTASSIUM 50 MG TABLET PO ONE (21:47)
[2019-04-13 22:20] VITALS: O2SAT 96
[2019-04-13] MEDS ORDERED: INSULIN GLARGINE 100 UNITS/ML SQ ONE (23:15)
[2019-04-14 00:26] VITALS: BP 170/79; TEMP 97.8
[2019-04-14] MEDS ORDERED: INSULIN GLARGINE 100 UNITS/ML SQ ONE (23:15)
== END 2019-04-14 01:12 | disposition short-term general hospital (02) | DRG 280 ==
LOC: ER 20:22 → OBSVTOIN 04-12 01:16 → ERHOLD 04-12 01:16 → 2ND 04-12 01:21
PROVIDERS: ADMIT Hospitalist; ATTEND Family Medicine
PROC: 4A023N7 Measurement of Cardiac Sampling and Pressure, Left Heart, Percutaneous Approach (ICD-10-PCS; principal; 2019-04-12)
PROC: B2111ZZ Fluoroscopy of Multiple Coronary Arteries using Low Osmolar Contrast (ICD-10-PCS; 2019-04-12)
PROC: B2151ZZ Fluoroscopy of Left Heart using Low Osmolar Contrast (ICD-10-PCS; 2019-04-12)
DX: I21.4 Non-ST elevation (NSTEMI) myocardial infarction (principal); E11.01 Type 2 diabetes mellitus with hyperosmolarity with coma; N18.2 Chronic kidney disease, stage 2 (mild); I25.10 Atherosclerotic heart disease of native coronary artery without angina pectoris; I12.9 Hypertensive chronic kidney disease with stage 1 through stage 4 chronic kidney disease, or unspecified chronic kidney disease; B02.9 Zoster without complications; M10.9 Gout, unspecified; E78.5 Hyperlipidemia, unspecified; Z79.4 Long term (current) use of insulin; Z95.5 Presence of coronary angioplasty implant and graft; Z88.5 Allergy status to narcotic agent
CPT/HCPCS: 36415; 71045; 76700; 80048; 80061; 80076; 81003; 82010; 82947; 82962; 83735; 83880; 84484; 85025; 85610; 93005; 93306; 93458; 96361; 96372; 96374; 99285; C1760; C1893; J0583; J1650; J2250; J3010; J7030